=== PATIENT | male | born 1970 | race Hispanic/Latino ===

== ENCOUNTER 2016-12-13 11:32 | Emergency (ER) | payer SELFPAY ==
[2016-12-13 11:44] VITALS: BP 111/61
[2016-12-13] MEDS ORDERED: TORADOL IM ONE (11:57)
--- NOTE | 2016-12-13 12:15 | Emergency Department Report ---
Entered by XU THURSTON, acting as scribe for ROBERT ERWIN NP. ED Extremity Problem HPI - General Chief complaint: Extremity Injury, Lower Stated complaint: LT FOOT POSS BROKEN TOE Time Seen by Provider: 12/13/16 11:52 Source: patient Mode of arrival: Ambulatory Limitations: No Limitations - History of Present Illness Initial comments: 46 y/o male presents to ED c/o left great toe pain, secondary to acute on chronic injury. Pt reports he originally injured his left foot 1 year ago while running and striking a cross-tie. He reports mild chronic pain since. This morning at 0800, he states he was working on his car when he accidentally kicked a cinder block and re-injured his toe. He denies administering any medication at home for pain control. He states his pain is constant, but notes walking or bearing weight exacerbates his pain. He denies sensation deficits in his toe. Pt has no additional complaints. MD Complaint: extremity pain (left great toe) Onset/Timin -: hour(s) Time: 08:00 Location: left, toe (great toe) History of Same: Yes (injury one year ago, has never followed up) Radiation: none Severity scale (0 -10): 10 Quality: constant Consistency: constant Improves with: nothing Worsens with: weight bearing, walking Associated Symptoms: denies other symptoms - Related Data Previous Rx's Medication Instructions Recorded Last Taken Type Ibuprofen [Motrin] 600 mg PO Q8H PRN #15 tablet 12/13/16 Unknown Rx Allergies Allergy/AdvReac Type Severity Reaction Status Date / Time No Known Allergies Allergy Unverified 01/21/16 13:42 ED Review of Systems Comment: All other systems reviewed and negative Respiratory: no symptoms reported Gastrointestinal: denies: abdominal pain Musculoskeletal: as per HPI, other (pain to left great toe) Skin: change in color. denies: lesions Neurological: denies: numbness, other (tingling) ED Past Medical Hx - Past Medical History Previous Medical History?: Yes Hx Psychiatric Treatment: Yes (drug abuse program) - Surgical History Past Surgical History?: No - Social History Smoking Status: Current Every Day Smoker Substance Use Type: Non Opiate Pain - Medications Home Medications: Home Medications Medication Instructions Recorded Confirmed Last Taken Type Ibuprofen [Motrin] 600 mg PO Q8H PRN #15 tablet 12/13/16 Unknown Rx ED Physical Exam - General Limitations: No Limitations General appearance: alert, anxious (pt appears in pain ) - Head Head exam: Present: atraumatic, normocephalic - Eye Eye exam: Present: normal appearance, PERRL, EOMI Pupils: Present: normal accommodation - ENT ENT exam: Present: normal exam, normal orophraynx - Neck Neck exam: Present: normal inspection, full ROM - Respiratory Respiratory exam: Present: normal lung sounds bilaterally. Absent: respiratory distress, wheezes, rales, rhonchi - Cardiovascular Cardiovascular Exam: Present: regular rate, normal rhythm, normal heart sounds - GI/Abdominal GI/Abdominal exam: Present: soft. Absent: distended, tenderness - Extremities Exam Extremities exam: Present: tenderness, normal capillary refill (in left great toe). Absent: calf tenderness - Expanded Lower Extremity Exam Left Ankle exam: Present: normal inspection, full ROM. Absent: tenderness Foot/Toe exam: Present: tenderness (left great toe), swelling (to L great toe ) . Absent: deformity, calcaneal tenderness, tenderness at base of 5th metatarsal , nail avulsion, subungual hematoma Neuro vascular tendon exam: Present: no vascular compromise. Absent: sensory deficit - Back Exam Back exam: Present: normal inspection, full ROM - Neurological Exam Neurological exam: Present: alert, oriented X3. Absent: motor sensory deficit - Psychiatric Psychiatric exam: Present: normal affect, normal mood - Skin Skin exam: Present: warm, dry, intact, normal color ED Course Vital Signs 12/13/16 12/13/16 11:41 12:29 Temperature 98 F Pulse Rate 67 Respiratory 20 20 Rate Blood Pressure 111/61 O2 Sat by Pulse 96 Oximetry - Reevaluation(s) Reevaluation #1: 12/13/16 12:13 PT refusing Narcotics. PT offered Toradol for pain control. PT given ice pack for comfort. Reevaluation #2: 12/13/16 12:50 PT states pain decreased so Toradol. PT and family aware that XR's do not show fx. Aware of plan of care. Reevaluation #3: 12/13/16 13:40 PT in L post op shoe. PT NVI. 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 Injury of left great toe Qualifiers: Encounter type: initial encounter Qualified Code(s): S99.922A - Unspecified injury of left foot, initial encounter Disposition: DISCHARGED TO HOME OR SELFCARE Is pt being admited?: No Does the pt Need Aspirin: No Condition: Stable Instructions: Crutch Instructions (ED), Osteoarthritis (ED), Foot Contusion (ED ) Prescriptions: Ibuprofen [Motrin] 600 mg PO Q8H PRN #15 tablet PRN Reason: Pain Referrals: PRIMARY CARE, [Primary Care Provider] - 3-5 Days HILDA WATTS MD [Staff Physician] - 3-5 Days ANDRÉS FUNK MD [Staff Physician] - 3-5 Days [facility] [Outside] - 3-5 Days Time of Disposition: 13:41 This documentation as recorded by the KARENA serrato AHSAN,accurately reflects the service I personally performed and the decisions made by YAIMA leonardo TRACY M, NP.
--- NOTE | 2016-12-13 12:35 | XRay Report ---
X-RAY LEFT GREAT TOE THREE VIEWS: 12/13/16 11:57:00 CLINICAL: Trauma and pain. FINDINGS: No fracture or dislocation. Moderate osteoarthritis of the first MTP joint. Mild soft tissue swelling at the first MTP joint. The rest of the bones are normal. No soft tissue air or foreign body. IMPRESSION: Arthritis at the first MTP joint but no apparent traumatic injury.
== END 2016-12-13 13:42 | disposition home or self-care (01) ==
LOC: ED 11:32
DX: M19.072 Primary osteoarthritis, left ankle and foot (principal); S99.922A Unspecified injury of left foot, initial encounter; F17.200 Nicotine dependence, unspecified, uncomplicated; X58.XXXA Exposure to other specified factors, initial encounter; Y93.9 Activity, unspecified; Y92.9 Unspecified place or not applicable; Y99.9 Unspecified external cause status
CPT/HCPCS: 73660; 96372; 99283; J1885

== ENCOUNTER 2018-04-06 13:52 | Emergency (ER) | payer SELFPAY ==
[2018-04-06 14:09] VITALS: BP 113/79
== END 2018-04-06 14:10 | disposition left against medical advice (07) ==
LOC: ED 13:52
DX: R07.9 Chest pain, unspecified (principal); Z53.21 Procedure and treatment not carried out due to patient leaving prior to being seen by health care provider
CPT/HCPCS: 93005; 93010

== ENCOUNTER 2019-10-06 00:04 | Emergency (ER) | payer SELFPAY ==
[2019-10-06] MEDS ORDERED: ASPIRIN 325 MG TAB PO ONE (00:56)
[2019-10-06 01:11] LABS: Basophils % (Auto) 0.4 % (0.0-1.8); Eosinophils # (Auto) 0.3 K/mm3 (0.0-0.4); Eosinophils % (Auto) 2.7 % (0.0-4.3); Hematocrit 43.1 % (35.5-45.6); Hemoglobin 15.3 gm/dl (11.8-15.2); Lymphocytes # (Auto) 2.1 K/mm3 (1.2-5.4); Lymphocytes % (Auto) 22.7 % (13.4-35.0); Mean Corpuscular HGB Conc 36 % (32-34); Mean Corpuscular Volume 94 fl (84-94); Monocytes # (Auto) 0.6 K/mm3 (0.0-0.8); Monocytes % (Auto) 6.4 % (0.0-7.3); Platelet Count 162 K/mm3 (140-440); Red Blood Count 4.58 M/mm3 (3.65-5.03); Red Cell Distribution Width 12.6 % (13.2-15.2)
[2019-10-06 01:32] LABS: BUN/Creatinine Ratio 10; Blood Urea Nitrogen 9 mg/dL (9-20); Calcium 9.7 mg/dL (8.4-10.2); Hemolysis Index 48
--- NOTE | 2019-10-06 01:42 | XRay Report ---
CHEST 1 VIEW INDICATION / CLINICAL INFORMATION: Chest Pain. COMPARISON: None available. FINDINGS: SUPPORT DEVICES: None. HEART / MEDIASTINUM: No significant abnormality. LUNGS / PLEURA: No significant pulmonary or pleural abnormality.. No pneumothorax. ADDITIONAL FINDINGS: No significant additional findings. IMPRESSION: 1. No acute findings. Signer Name: Lucian Mckeon MD Signed: 10/06/2019 1:37 AM Workstation Name: [id number]
[2019-10-06] MEDS ORDERED: MORPHINE 2 MG/1 ML INJ IV ONE (02:20)
[2019-10-06] MEDS ORDERED: ALUM-MAG HYDROXIDE-SIMETHICONE 200-200-20MG/5ML ORAL LIQD 30 ML PO ONE (02:21)
[2019-10-06] MEDS ORDERED: ONDANSETRON 4 MG/2 ML INJ IV ONE (02:21)
--- NOTE | 2019-10-06 02:23 | Emergency Department Report ---
ED Chest Pain HPI - General Chief Complaint: Chest Pain Stated Complaint: CHEST PAIN Source: patient Mode of arrival: Ambulatory Limitations: No Limitations - History of Present Illness Initial Comments: This is a 49-year-old male with no significant past medical history or presents to the ED with chest pain. Patient stated pain located in the mid sternum, without radiation, rated 7 out of 10, sharp, also pressure-like. Has been constant for the past 2 weeks. He has not taking any medications for his symptoms. He denies any nausea, vomiting, diaphoresis. Does not have a PCP, does not know of any medical issues. Denies any similar symptoms in the past. Denies any alleviating or exacerbating factors. MD Complaint: chest pain -: Gradual, week(s) (2 ) Onset: during rest Pain Location: epigastric Pain Radiation: none Severity scale (0 -10): 7 Quality: tightness, pressure Consistency: constant Improves With: nothing Worsens With: nothing re: nausea. denies: vomting Other Symptoms: denies: cough Treatments Prior to Arrival: none Aspirin use within the Past 7 Days: (0) No - Related Data On Oral Contraceptives: No Previous Rx's Medication Instructions Recorded Last Taken Type Ibuprofen [Motrin] 600 mg PO Q8H PRN #15 tablet 12/13/16 Unknown Rx Famotidine [Pepcid] 40 mg PO QHS 30 Days #30 tablet 10/06/19 Unknown Rx Allergies Allergy/AdvReac Type Severity Reaction Status Date / Time No Known Allergies Allergy Unverified 01/21/16 13:42 Heart Score - HEART Score History: Slightly suspicious EKG: Non-specific Age: 45-65 Troponin: < normal limit - Critical Actions Critical Actions: 0-3 pts:0.9-1.7%risk of adverse cardiac event.Candidate for discharge ED Review of Systems ROS: Stated complaint: CHEST PAIN Other details as noted in HPI ED Past Medical Hx - Past Medical History Previous Medical History?: No Hx Psychiatric Treatment: Yes (drug abuse program) - Surgical History Past Surgical History?: No - Social History Smoking Status: Current Every Day Smoker Substance Use Type: None - Medications Home Medications: Home Medications Medication Instructions Recorded Confirmed Last Taken Type Ibuprofen [Motrin] 600 mg PO Q8H PRN #15 tablet 12/13/16 Unknown Rx Famotidine [Pepcid] 40 mg PO QHS 30 Days #30 tablet 10/06/19 Unknown Rx ED Physical Exam - General Limitations: No Limitations ED Course Vital Signs 10/06/19 10/06/19 10/06/19 00:09 02:06 02:11 Temperature 97.7 F 97.9 F Pulse Rate 58 L 55 L Respiratory 18 15 Rate Blood Pressure 135/81 O2 Sat by Pulse 100 96 Oximetry 10/06/19 10/06/19 10/06/19 02:15 02:30 02:45 Temperature Pulse Rate 57 L 57 L 60 Respiratory 21 16 12 Rate Blood Pressure 141/88 140/86 137/87 O2 Sat by Pulse 97 97 98 Oximetry 10/06/19 10/06/19 10/06/19 03:00 03:15 03:56 Temperature Pulse Rate 58 L 61 Respiratory 15 16 Rate Blood Pressure 139/89 125/83 125/83 O2 Sat by Pulse 99 96 98 Oximetry 10/06/19 10/06/19 04:00 04:15 Temperature Pulse Rate Respiratory 13 13 Rate Blood Pressure 131/84 136/88 O2 Sat by Pulse 98 99 Oximetry ED Medical Decision Making - Lab Data Result diagrams: 10/06/19 00:58 10/06/19 00:58 Critical care attestation.: If time is entered above; I have spent that time in minutes in the direct care of this critically ill patient, excluding procedure time. ED Disposition Clinical Impression: Gastritis Qualifiers: Gastritis type: other gastritis Chronicity: acute Gastritis bleeding: without bleeding Qualified Code(s): K29.00 - Acute gastritis without bleeding Disposition: DC-01 TO HOME OR SELFCARE Is pt being admited?: No Does the pt Need Aspirin: No Condition: Stable Instructions: Gastritis (ED), Diet for Ulcers and Gastritis (ED) Prescriptions: Famotidine [Pepcid] 40 mg PO QHS 30 Days #30 tablet Referrals: GERRY LOPEZ MD [Primary Care Provider] - 3-5 Days
[2019-10-06] MEDS ORDERED: SODIUM CHLORIDE 0.9% 1000 ML 1,000 ML IV ONE (02:27)
[2019-10-06] MEDS ORDERED: KETOROLAC 30 MG/1 ML INJ IV ONE (02:58)
[2019-10-06] MEDS ORDERED: KETOROLAC 30 MG/1 ML INJ ONE (03:00)
[2019-10-06 03:13] LABS: INR 0.92 (0.87-1.13); Partial Thromboplastin Time 25.8 Sec. (24.2-36.6)
--- NOTE | 2019-10-06 04:07 | Cat Scan Report ---
CTA of the chest with 3D Reconstruction Indication: ,chest pain Technique: TECHNIQUE: Axial CT images were obtained through the chest after injection of 100 cc of Omnipaque 350 IV contrast. 3 plane MIP reconstructions were produced. All CT scans at this location are performed using CT dose reduction for ALARA by means of automated exposure control. COMPARISON: None Automatic exposure control was utilized in an attempt to reduce radiation dose. Findings: Pulmonary arteries: The main pulmonary artery and right and left pulmonary artery branches fill satis factorily with contrast. No pulmonary embolus is seen. Lungs: The lungs are clear. Mediastinum: Heart size is normal. No adenopathy is seen. Aorta: Normal in diameter. No dissection seen within limits of this exam. Impression: No pulmonary embolus is seen Signer Name: Lucian Mckeon MD Signed: 10/06/2019 4:02 AM Workstation Name: [id number]
[2019-10-06] MEDS ORDERED: FAMOTIDINE 20 MG/2 ML INJ IV ONE (04:51)
[2019-10-06 05:14] VITALS: BP 141/87
== END 2019-10-06 05:14 | disposition home or self-care (01) ==
LOC: ED 00:04
DX: K29.00 Acute gastritis without bleeding (principal); F17.200 Nicotine dependence, unspecified, uncomplicated; Z79.1 Long term (current) use of non-steroidal anti-inflammatories (NSAID); Z79.899 Other long term (current) drug therapy
CPT/HCPCS: 36415; 71045; 71275; 80048; 83690; 84484; 85025; 85379; 85610; 85730; 93005; 93010; 96361; 96374; 99284; J1885; J7030; Q9967; J2270; J2405

== ENCOUNTER 2021-05-25 14:07 | Emergency (ER) | payer SELFPAY ==
[2021-05-25] MEDS ORDERED: MORPHINE 4 MG/1 ML INJ ONE (14:09)
[2021-05-25] MEDS ORDERED: MORPHINE 4 MG/1 ML INJ IV ONE (14:14)
[2021-05-25 14:20] VITALS: BP 149/89
--- NOTE | 2021-05-25 14:46 | XRay Report ---
LEFT THUMB 3 VIEWS INDICATION: laceration LT THUMB. COMPARISON: No relevant prior imaging study available. FINDINGS: There is laceration injury at the distal tip of the left thumb. No radiodense foreign bodies. There i s a tiny fracture involving the distal tuft seen on the third image. Mildly displaced thin linear fra gment measures 4-5 mm. IMPRESSION: 1. Distal left thumb laceration injury with tiny fracture at the distal tuft. Signer Name: Nicholas Gupta MD Signed: 05/25/2021 2:42 PM Workstation Name: [id number]
[2021-05-25] MEDS ORDERED: HYDROmorphone 1 MG/1 ML INJ IV ONE (14:56)
[2021-05-25] MEDS ORDERED: ceFAZolin/NS 1 GM/50 ML 1 GM/50 ML BAG IV ONE (14:56)
[2021-05-25] MEDS ORDERED: TETANUS,DIPH,PERTUSS(ACELL) VACCINE 0.5 ML SYRINGE IM ONE (14:57)
[2021-05-25] MEDS ORDERED: SODIUM CHLORIDE IRRI 500 ML 500 ML IR ONE ×2 (15:03→16:04)
--- NOTE | 2021-05-25 15:29 | Emergency Department Report ---
- General Chief Complaint: Laceration/Recheck/Suture Stated Complaint: HAND COUGHT IN BLOWER Time Seen by Provider: 05/25/21 14:53 Source: patient Mode of arrival: Ambulatory Limitations: No Limitations - History of Present Illness Initial Comments: 51-year-old male presents to ED with left thumb injury. Patient states he stuck his hand in a leaf blower. Patient reports the tip of the thumb is lacerated. -: This afternoon Location: other (Left thumb) Patient Tetanus UTD: No Context: accidental Associated Symptoms: pain - Related Data Previous Rx's Medication Instructions Recorded Last Taken Type Ibuprofen [Motrin] 600 mg PO Q8H PRN #15 tablet 12/13/16 Unknown Rx Famotidine [Pepcid] 40 mg PO QHS 30 Days #30 tablet 10/06/19 Unknown Rx HYDROcodone/APAP 5-325 [Kent 1 each PO Q6HR PRN #10 tablet 05/25/21 Unknown Rx 5/325] Naproxen [Naprosyn] 500 mg PO BID #20 tablet 05/25/21 Unknown Rx cephALEXin [Keflex] 500 mg PO Q12HR 10 Days #20 cap 05/25/21 Unknown Rx Allergies Allergy/AdvReac Type Severity Reaction Status Date / Time No Known Allergies Allergy Unverified 01/21/16 13:42 ED Review of Systems ROS: Stated complaint: HAND COUGHT IN BLOWER Other details as noted in HPI Comment: All other systems reviewed and negative Musculoskeletal: as per HPI Neurological: denies: numbness ED Past Medical Hx - Past Medical History Previous Medical History?: Yes Hx Psychiatric Treatment: Yes (drug abuse program) Additional medical history: Hepatitis C - Social History Smoking Status: Never Smoker - Medications Home Medications: Home Medications Medication Instructions Recorded Confirmed Last Taken Type Ibuprofen [Motrin] 600 mg PO Q8H PRN #15 tablet 12/13/16 Unknown Rx Famotidine [Pepcid] 40 mg PO QHS 30 Days #30 tablet 10/06/19 Unknown Rx HYDROcodone/APAP 5-325 [Kent 1 each PO Q6HR PRN #10 tablet 05/25/21 Unknown Rx 5/325] Naproxen [Naprosyn] 500 mg PO BID #20 tablet 05/25/21 Unknown Rx cephALEXin [Keflex] 500 mg PO Q12HR 10 Days #20 cap 05/25/21 Unknown Rx ED Physical Exam - General Limitations: No Limitations General appearance: alert - Head Head exam: Present: atraumatic, normocephalic - Eye Eye exam: Present: normal appearance, EOMI - ENT ENT exam: Present: mucous membranes moist - Neck Neck exam: Present: normal inspection - Respiratory Respiratory exam: Present: normal lung sounds bilaterally. Absent: respiratory distress - Cardiovascular Cardiovascular Exam: Present: regular rate, normal rhythm - GI/Abdominal GI/Abdominal exam: Absent: distended - Extremities Exam Extremities exam: Present: other (Avulsion of the distal dorsal tip of left thumb; partial avulsion of the lateral aspect of the thumbnail) - Neurological Exam Neurological exam: Present: alert, oriented X3. Absent: motor sensory deficit - Psychiatric Psychiatric exam: Present: normal affect, normal mood - Skin Skin exam: Present: warm, dry ED Course Vital Signs 05/25/21 05/25/21 14:19 14:44 Temperature 98.8 F Pulse Rate 81 Respiratory 22 16 Rate Blood Pressure 149/89 [Left] O2 Sat by Pulse 96 97 Oximetry - Laceration /Wound Repair Left Finger Wound Location: upper extremity Wound Length (cm): 3 Wound's Depth, Shape: nail-avulsed, contused tissue Wound Explored: clean Irrigated w/ Saline (ccs): 500 Betadine Prep?: Yes Anesthesia: 1% Lidocaine Volume Anesthetic (ccs): 2 Wound Debrided: minimal Sterile Dressing Applied?: Yes ED Medical Decision Making - Radiology Data Radiology results: report reviewed, image reviewed - Medical Decision Making 51-year-old male with avulsion of left tip of thumb. X-ray shows tuft fracture. Patient given IV Ancef for open fracture. He was also given pain medication and tetanus vaccine. Patient initially soaked in Betadine and normal saline. I later performed a digital block with 1% lidocaine without epi in order to irrigate the wound. Wound was irrigated with 500 cc normal saline. Small piece of avulsed fingernail was debrided away from the nailbed. Dressing placed. Patient advised to follow-up with Ortho. Prescriptions will be given. Return precautions given. - Differential Diagnosis Laceration, amputation, fracture Critical care attestation.: If time is entered above; I have spent that time in minutes in the direct care of this critically ill patient, excluding procedure time. ED Disposition Clinical Impression: Open fracture of tuft of distal phalanx of left thumb, Avulsion of finger tip Disposition: 01 HOME / SELF CARE / HOMELESS Is pt being admited?: No Condition: Stable Instructions: Wound Care, Adult Prescriptions: cephALEXin [Keflex] 500 mg PO Q12HR 10 Days #20 cap Naproxen [Naprosyn] 500 mg PO BID #20 tablet HYDROcodone/APAP 5-325 [Kent 5/325] 1 each PO Q6HR PRN #10 tablet PRN Reason: Pain Referrals: PRIMARY CAREMD [Primary Care Provider] - 3-5 Days FERNANDO ALEXIS MD [Staff Physician] - 3-5 Days Time of Disposition: 17:12
== END 2021-05-25 18:15 | disposition home or self-care (01) ==
LOC: ED 14:07
DX: S62.522B Displaced fracture of distal phalanx of left thumb, initial encounter for open fracture (principal); S61.112A Laceration without foreign body of left thumb with damage to nail, initial encounter; Z98.890 Other specified postprocedural states; Z79.899 Other long term (current) drug therapy; W26.8XXA Contact with other sharp object(s), not elsewhere classified, initial encounter; Y93.89 Activity, other specified; Y92.89 Other specified places as the place of occurrence of the external cause; Y99.8 Other external cause status
CPT/HCPCS: 11730; 73140; 90471; 90715; 96365; 96375; 99283; J0690; J1170; J2270